=== PATIENT | female | born 1950 | race Caucasian/White ===

== ENCOUNTER → 2016-06-05 | Outpatient (CLI) | payer BC ==
[~2016-06-05] MED LIST: ASP325T PO; ASPI-587 PO; ATN25T; ATR20T; ERGO400C PO; FOLI0.4T2 PO; MULT-608 PO; OMG1KC PO; PNT40TEC PO; PRILOSEC; SUCR1TAB23 PO; TRHC5025
--- NOTE | 2016-06-06 19:04 | Diagnostic Imaging Report ---
Bilateral screening mammogram The current study was also evaluated with a Computer Aided Detection (CAD) system. Indication: Screening. No current complaints stated on the questionnaire. COMPARISON: 06/02/15. FINDINGS: The breasts are composed of scattered for fibroglandular densities. There are occasional benign-appearing calcifications. Allowing for technique and positional differences, no suspicious change is seen. IMPRESSION: No significant change. ACR BI-RADS Category 2: Benign findings. Result letter will be mailed to the patient. Note: At least 10% of breast cancer is not imaged by mammography. Dictated by: Dictated on workstation # [id number]
== END ==
LOC: RAD 08:52
PROVIDERS: ATTEND Family Medicine
DX: Z12.31 Encounter for screening mammogram for malignant neoplasm of breast (principal)
CPT/HCPCS: 77067

== ENCOUNTER → 2017-06-06 | Outpatient (CLI) | payer BC ==
--- NOTE | 2017-06-06 13:22 | Diagnostic Imaging Report ---
INDICATION: Routine screening. COMPARISON: Comparison is made with prior exam from 06/05/2016 and 06/02/2015. The current study was also evaluated with a Computer Aided Detection (CAD) system. FINDINGS: Scattered fibronodular densities are identified bilaterally. There are benign-appearing calcifications on the right. Tiny circumscribed nodular densities in the right breast appear stable and consistent with benign etiology. No spiculated mass or malignant appearing microcalcifications are seen. The axillae are unremarkable. IMPRESSION: No mammographic features suspicious for malignancy are identified. ACR BI-RADS Category 2: Benign findings. Result letter will be mailed to the patient. Note: At least 10% of breast cancer is not imaged by mammography. Dictated by: Dictated on workstation # [id number]
== END ==
LOC: RAD 10:22
PROVIDERS: ATTEND Family Medicine
DX: Z12.31 Encounter for screening mammogram for malignant neoplasm of breast (principal)
CPT/HCPCS: 77067

== ENCOUNTER → 2017-12-08 | Outpatient (CLI) | payer BC | LOC: CARD 09:43 | PROVIDERS: ATTEND Internal Medicine Interventional Cardiology | DX: E78.5 Hyperlipidemia, unspecified (principal); I10 Essential (primary) hypertension; I34.1 Nonrheumatic mitral (valve) prolapse; R00.2 Palpitations | CPT/HCPCS: 93306 ==

== ENCOUNTER → 2018-05-25 | Outpatient (CLI) | payer BC | LOC: CARD 08:19 | PROVIDERS: ATTEND Internal Medicine Interventional Cardiology | DX: R00.2 Palpitations (principal); R42 Dizziness and giddiness | CPT/HCPCS: 93225; 93226 ==

== ENCOUNTER 2018-05-26 08:43 | Outpatient (RCR) | payer BC | END 2018-08-24 | disposition home or self-care (01) | LOC: CARD 08:43 | PROVIDERS: ATTEND Internal Medicine Interventional Cardiology | DX: R00.2 Palpitations (principal); R42 Dizziness and giddiness | CPT/HCPCS: 93270 ==

== ENCOUNTER → 2018-07-02 | Outpatient (CLI) | payer BC ==
--- NOTE | 2018-07-02 21:46 | Diagnostic Imaging Report ---
INDICATION: Routine screening. Comparison is made with prior mammograms from 06/06/2017 and 06/05/2016. 2-D and 3-D bilateral screening mammography was performed with a Computer Aided Detection (CAD) system. FINDINGS: Scattered fibroglandular densities are identified bilaterally. Circumscribed nodular density in the outer right breast appears stable. Left breast is stable. No new mass or malignant-appearing microcalcifications are seen. The axillae are unremarkable. IMPRESSION: No mammographic features suspicious for malignancy are identified. ACR BI-RADS Category 2: Benign findings. Result letter will be mailed to the patient. Note: At least 10% of breast cancer is not imaged by mammography. Dictated by: Dictated on workstation # [id number]
== END ==
LOC: RAD 11:15
PROVIDERS: ATTEND Family Medicine
DX: Z12.31 Encounter for screening mammogram for malignant neoplasm of breast (principal)
CPT/HCPCS: 77067

== ENCOUNTER → 2018-07-02 | Day surgery (SDC) | payer BC ==
[~2018-07-02] VITALS: Ht 160 cm; Wt 77.1 kg
[~2018-07-02] MED LIST changes: +LIDOCAINE 1% INJ 20 ML 20 ML VIAL ONE
[2018-07-02 14:20] VITALS: BP 156/74
--- NOTE | 2018-07-02 15:50 | Implantation of Loop Monitor ---
Implant of Loop Monitior PROCEDURE PHYSICIAN: Rambo Hayes MD IMPLANTATION OF LOOP MONITOR REPORT DATE OF PROCEDURE: 07/02/18 ATTENDING PHYSICIAN: Dr. Pedro Luis Hayes. PERFORMING PHYSICIAN: Dr. Pedro Luis Hayes. INDICATION: Long-term surveillance of atrial fibrillation PREOP DIAGNOSIS: Long-term surveillance of atrial fibrillation POSTOP DIAGNOSIS: Paroxysmal Atrial fibrillation, s/p implantation of loop recorder. PROCEDURE DETAILS: The patient is a 67 female with likely history of paroxysmal atrial fibrillation requiring long-term surveillance. Therefore implantable loop recorder was discussed and agreed with the patient. Informed consent was taken. All risks and complications were discussed at length. The patient was draped and prepped in the usual sterile fashion. Local anesthesia was lidocaine, which was given in the substernal area close to the 4th intercostal space. Loop monitor was implanted according to the protocol. Steri-Strips were placed at the end of the procedure. There were no complications and the patient tolerated the procedure well. ANESTHESIA: Local anesthesia with lidocaine. COMPLICATIONS: None CONTRAST/FLUOROSCOPY: None CONCLUSION: 1. Successful implantation of loop monitor for paroxysmal atrial fibrillation , Long-term surveillance. 2. No complication and the patient tolerated the procedure well. Rambo Hayes MD, RS, CCDS Cardiac Electrophysiology Cynthia HAYES MD Jul 02, 2018 15:50
== END | disposition home or self-care (01) ==
LOC: CATH 14:03
PROVIDERS: ATTEND Internal Medicine Interventional Cardiology
DX: I48.0 Paroxysmal atrial fibrillation (principal); I25.10 Atherosclerotic heart disease of native coronary artery without angina pectoris; I10 Essential (primary) hypertension; E78.5 Hyperlipidemia, unspecified; I34.0 Nonrheumatic mitral (valve) insufficiency; Z79.01 Long term (current) use of anticoagulants; Z79.82 Long term (current) use of aspirin; Z79.899 Other long term (current) drug therapy; Z87.891 Personal history of nicotine dependence
CPT/HCPCS: 33285

== ENCOUNTER → 2018-07-09 | Outpatient (CLI) | payer BC ==
[~2018-07-09] VITALS: Ht 167.6 cm; Wt 79.4 kg
[~2018-07-09] MED LIST changes: +CATHETER FLUSH 10 ML SYR IV PRN; -LIDOCAINE 1% INJ 20 ML 20 ML VIAL ONE; +REGADENOSON 0.4 MG/5 ML SYR (LEXISCAN) IV ONE
[2018-07-09 10:04] VITALS: BP 142/87
== END ==
LOC: CARD 07:45
PROVIDERS: ATTEND Internal Medicine Interventional Cardiology
DX: I48.0 Paroxysmal atrial fibrillation (principal)
CPT/HCPCS: 78452; 93017

== ENCOUNTER → 2019-08-09 | Outpatient (CLI) | payer BC ==
[~2019-08-09] MED LIST changes: -CATHETER FLUSH 10 ML SYR IV PRN; -REGADENOSON 0.4 MG/5 ML SYR (LEXISCAN) IV ONE
--- NOTE | 2019-08-09 20:30 | Diagnostic Imaging Report ---
EXAM: Digital mammogram bilateral screening COMPARISON: This study was compared to the prior exams of 07/02/2018, 06/06/2017, and 06/05/2016. There are no current complaints. FINDINGS: There are scattered fibroglandular densities in both breasts which could obscure a lesion. Overall, there does not appear to have been any significant change when compared to the prior exam. No primary or secondary sign of malignancy is noted. IMPRESSION: There is no radiographic evidence for malignancy. ACR BI-RADS Category 1: Negative. Result letter will be mailed to the patient. Note: At least 10% of breast cancer is not imaged by mammography. Dictated by: Dictated on workstation # [id number]
== END ==
LOC: RAD 14:01
PROVIDERS: ATTEND Nurse Practitioner Family
DX: Z12.31 Encounter for screening mammogram for malignant neoplasm of breast (principal)
CPT/HCPCS: 77063; 77067

== ENCOUNTER → 2019-11-16 | Outpatient (CLI) | payer BC | LOC: CARD 11:30 | PROVIDERS: ATTEND Internal Medicine Interventional Cardiology | DX: I34.0 Nonrheumatic mitral (valve) insufficiency (principal); I34.1 Nonrheumatic mitral (valve) prolapse; I48.0 Paroxysmal atrial fibrillation; I51.89 Other ill-defined heart diseases | CPT/HCPCS: 93306 ==

== ENCOUNTER → 2020-08-28 | Outpatient (CLI) | payer BC ==
--- NOTE | 2020-08-28 12:54 | Diagnostic Imaging Report ---
INDICATION: Routine screening. COMPARISON: 08/09/2019 and 07/02/2018. TECHNIQUE: 2D and 3D bilateral screening mammography was performed with CAD. FINDINGS: Scattered fibroglandular densities are identified bilaterally. Small circumscribed rounded densities in the outer right breast at posterior depth appear stable. No spiculated mass or malignant appearing microcalcifications are seen. The axillae are unremarkable. IMPRESSION: No mammographic features suspicious for malignancy are identified. ACR BI-RADS Category 2: Benign findings. Result letter will be mailed to the patient. Note: At least 10% of breast cancer is not imaged by mammography. Dictated by: Dictated on workstation # [id number]
== END ==
LOC: RAD 10:30
PROVIDERS: ATTEND Family Medicine
DX: Z12.31 Encounter for screening mammogram for malignant neoplasm of breast (principal)
CPT/HCPCS: 77063; 77067

== ENCOUNTER → 2021-05-28 | Outpatient (CLI) | payer BC, MEDICARE ==
[~2021-05-28] MED LIST changes: +CATHETER FLUSH 10 ML SYR IVP PRN; +REGADENOSON 0.4 MG/5 ML SYR (LEXISCAN) IV ONE
[2021-05-28 08:55] VITALS: BP 164/80
--- NOTE | 2021-05-28 11:16 | Cardiology Stress Test Report ---
Stress Test Report Date of Procedure/Referring: Date of Procedure: May 28, 2021 Meche Smith Admitting Physician Maribel Pulliam DO Indications: PAF Baseline Heart Rate: 65 Baseline Blood Pressure: Blood Pressure Systolic: 164 Blood Pressure Diastolic: 80 Baseline Vitals Vital Signs Date Time Temp Pulse Resp B/P (MAP) Pulse Ox O2 Delivery O2 Flow Rate FiO2 05/28/21 08:55 65 164/80 (108) Baseline EKG: Baseline EKG: NSR Summary After explaining the procedure to the patient, she signed a consent and then brought to the stress nuclear laboratory. Patient received 0.4 mg Lexiscan for stress test, ECG, heart rate and blood pressure were monitored continuously. Resting and stress dose of radio tracer were injected, imaging was acquired and reviewed in short axis, horizontal long axis and vertical long axis views. TID: 1.07 SSS: 4 SDS: 4 EF: 74 1. Patient tolerated Lexiscan well 2. Breast attenuation with mild decrease uptake involving the mid to apical anterolateral wall, mild reversibility, no significant ischemia or infarction on SPECT images 3. Normal left ventricular size, EF 74% Copy Copies To 1: MARIBEL PULLIAM BASHAR J MD May 28, 2021 11:16
== END ==
LOC: CARD 08:00
PROVIDERS: ATTEND Physician Assistant
DX: I48.0 Paroxysmal atrial fibrillation (principal)
CPT/HCPCS: 78452; 93017; A9502

== ENCOUNTER → 2021-09-24 | Outpatient (CLI) | payer MEDICARE ==
[~2021-09-24] MED LIST changes: -CATHETER FLUSH 10 ML SYR IVP PRN; -REGADENOSON 0.4 MG/5 ML SYR (LEXISCAN) IV ONE
--- NOTE | 2021-09-24 12:03 | Diagnostic Imaging Report ---
INDICATION: Routine screening. Comparison is made with prior mammogram 08/28/2020 and 08/09/2019. 2-D and 3-D bilateral screening mammography was performed with CAD. Scattered fibroglandular densities are identified bilaterally. Benign nodule upper outer right breast stable. No new mass or malignant-appearing microcalcifications are seen. Axillae are unremarkable. IMPRESSION: No mammographic features suspicious for malignancy are identified. ACR BI-RADS Category 2: Benign findings. Result letter will be mailed to the patient. Note: At least 10% of breast cancer is not imaged by mammography. BI-RADS Category 2 Dictated by: Dictated on workstation # [id number]
== END ==
LOC: RAD 10:00
PROVIDERS: ATTEND Family Medicine
DX: Z12.31 Encounter for screening mammogram for malignant neoplasm of breast (principal)
CPT/HCPCS: 77063; 77067

== ENCOUNTER 2022-12-18 05:38 | Outpatient (CLI) | payer MEDICARE, BC ==
[~2022-12-18] VITALS: Ht 165 cm; Wt 94.3 kg
[2022-12-18] MEDS ORDERED: RIVA20TA PO (09:41)
[2022-12-18] MEDS ORDERED: FAMO-356 PO (09:41)
[2022-12-18] MEDS ORDERED: LORA10TA7 PO (09:41)
[2022-12-18] MEDS ORDERED: FLEC50TA PO (09:41)
[2022-12-18] MEDS ORDERED: CHOL200078 PO (09:41)
[2022-12-18] MEDS ORDERED: TRIA1CAP84 PO (09:41)
[2022-12-18] MEDS ORDERED: TURM500T PO (09:41)
[2022-12-18] MEDS ORDERED: AMLO-250 PO (09:41)
[2022-12-18] MEDS ORDERED: DOCU100C37 PO (09:41)
[2022-12-18] MEDS ORDERED: ATEN25TA PO (09:41)
== END 2022-12-18 09:47 | disposition home or self-care (01) ==
LOC: PREOP 05:38
PROVIDERS: ATTEND Surgery
DX: Z01.818 Encounter for other preprocedural examination (principal)

== ENCOUNTER 2022-12-25 12:00 | Day surgery (SDC) | payer MEDICARE, BC ==
[~2022-12-25] VITALS: Ht 165 cm; Wt 94.3 kg
[~2022-12-25 12:00] MED LIST changes: +AMLO-250 PO; +ATEN25TA PO; +CHOL200078 PO; +DOCU100C37 PO; +FAMO-356 PO; +FLEC50TA PO; +LORA10TA7 PO; +RIVA20TA PO; +TRIA1CAP84 PO; +TURM500T PO
--- NOTE | 2022-12-25 12:04 | Progress Note-Pre Operative ---
Pre-Operative Progress Note Date of Available H&P: Dec 25, 2022 Date H&P Reviewed: Dec 25, 2022 Time H&P Reviewed: 12:00 History & Physical: No changes noted Pre-Operative Diagnosis: screening o STEPHEN SIMMONS MD Dec 25, 2022 12:04
--- NOTE | 2022-12-25 12:05 | Discharge Inst-Surgical ---
D/C Lap Instructions-IRIS Follow Up Activity as tolerated High Fiber Diet 25g or more per day Avoid Alcohol, Caffeine, Spicy [place] and Acid foods. Drink 64 fluid oz or more of fluids per day. Symptoms to Report: Fever over 101 degree F, Nausea/Vomiting If any problems/questions: Contact your physician or go to Emergency Room STEPHEN SIMMONS MD Dec 25, 2022 12:05
[2022-12-25] MEDS ORDERED: ONDANSETRON 4 MG ORAL DISSOLVE TABLET PO PRN (12:15)
[2022-12-25] MEDS ORDERED: ONDANSETRON INJECTION 4 MG/2 ML (SDV) IVP PRN (12:15)
[2022-12-25] MEDS ORDERED: LACTATED RINGERS 1,000 ML 1,000 ML IV STA (12:50)
[2022-12-25] MEDS ORDERED: LIDOCAINE JELLY 2% 6 ML SYRINGE ONE (12:56)
[2022-12-25] MEDS ORDERED: LIDOCAINE JELLY 2% 6 ML SYRINGE MM PRN (13:00)
[2022-12-25 13:01] VITALS: BP 138/73
[2022-12-25 14:09] VITALS: BP 115/62
[2022-12-25 14:14] VITALS: BP 123/65
[2022-12-25 14:20] VITALS: BP 123/65
[2022-12-25 14:50] VITALS: BP 124/62
[2022-12-25 15:06] VITALS: BP 124/62
--- NOTE | 2022-12-25 15:24 | Progress Note-Post Operative ---
Post-Operative Progess Note Surgeon (s)/Mill Dresser (s) Surgeon STEPHEN SIMMONS MD Mill Dresser: none Pre-Operative Diagnosis screening colo Post-Operative Diagnosis mild chronic stage 2 ext and int hemorrhoids, moderate sigmoid diverticulosis. Procedure & Operative Findings Date of Procedure 12/25/22 Procedure Performed/Findings colonoscopy. Anesthesia Type mac Estimated Blood Loss Estimated blood loss (mL): minimal Specimens/Packing Specimens Removed none STEPHEN SIMMONS MD Dec 25, 2022 15:24
--- NOTE | 2022-12-25 21:23 | OPERATIVE REPORT ---
DATE OF SERVICE: 12/25/2022 ATTENDING PRIMARY CARE PHYSICIAN:. Dr. Maribel Pulliam. PREOPERATIVE DIAGNOSIS: Screening colonoscopy. POSTOPERATIVE DIAGNOSES: Mild chronic stage II, external and internal hemorrhoids, moderate sigmoid diverticulosis. PROCEDURE: Colonoscopy. SURGEON: Stephen Simmons MD ANESTHESIA: Monitored anesthesia care. ESTIMATED BLOOD LOSS: Minimal. FINDINGS: Mild chronic stage II, external and internal hemorrhoids, moderate sigmoid diverticulosis. DISPOSITION: The patient tolerated the procedure well. INDICATIONS: The patient is a 72-year-old female known to us. She was seen for epigastric burning sensation and abdominal bloating and underwent an EGD and was found to have reflux esophagitis, small hiatal hernia as well as a moderate severity gastritis. She is due for a screening colonoscopy. Her last one was done in 2011 and she reports this to be normal. She does not have any major issues with diarrhea, nor constipation as well as no red blood per rectum, nor any dark tarry stools. She also does not report any family history of colon cancer. DESCRIPTION OF PROCEDURE: The patient was brought to the endoscopy suite and laid in the left lateral decubitus position. After adequate IV pain and sedative medications and monitored anesthesia care, a digital rectal examination was performed. Mild chronic stage II, external and internal hemorrhoids were identified, not actively edematous nor inflamed and no bleeding. Normal sphincter tone was felt and there were no palpable masses. The endoscope was then intubated into the anus, rectum gently insufflated. The endoscope was then advanced through the valves of [place] of the rectum with no polyps or any neoplasms identified. Through the sigmoid colon, a moderate sigmoid diverticulosis identified. The endoscope was then advanced through the remainder of the descending, transverse and ascending colon to the cecum, which were normal. There were no polyps or any neoplasms identified throughout the colon or rectum. The endoscope was then slowly withdrawn while taking a second look and suctioning of residual air with no additional findings. The patient tolerated the procedure well. We will recommend continued medical management with a high-fiber diet with addition of a fiber supplement, which should equal or exceed 25 grams daily as well as significant amounts of water to promote soft stools on a daily basis. If she is able to accomplish this, this will avoid further propagation of the diverticulosis or complications related to them. If she is asymptomatic, she does not need another colonoscopy for another 10 years. Job ID: [id number] DocumentID: [id number] Dictated Date: 12/25/2022 14:13:38 [employer] Date: 12/25/2022 21:21:00 Dictated By: STEPHEN SIMMONS MD MTDD
== END 2022-12-25 15:06 | disposition home or self-care (01) ==
LOC: ENDO 12:00
PROVIDERS: ATTEND Surgery
DX: Z12.11 Encounter for screening for malignant neoplasm of colon (principal); K57.30 Diverticulosis of large intestine without perforation or abscess without bleeding; K64.4 Residual hemorrhoidal skin tags; K64.8 Other hemorrhoids; Z87.891 Personal history of nicotine dependence